=== PATIENT | female | born 1950 | race Two or more races ===

== ENCOUNTER 2020-11-10 20:31 | Emergency (ER) | payer OTHER ==
[~2020-11-10] VITALS: Ht 165.1 cm; Wt 99.8 kg
[2020-11-10] MEDS ORDERED: BACITRACIN TOP OINT 1 UD PKG TOP ONE (23:00)
[2020-11-10] MEDS ORDERED: ACETAMINOPHEN 325 MG TAB PO ONE (23:00)
[2020-11-10] MEDS ORDERED: MORPHINE SULFATE 4 MG/ML SYR/VIAL IM ONE (23:15)
[2020-11-11] MEDS ORDERED: HYDROcodone-ACET 5/325MG TAB PO ONE (01:45)
[2020-11-11 02:15] VITALS: BP 155/84
== END 2020-11-11 02:12 | disposition home or self-care (01) ==
LOC: EDBD 20:31 → ER 20:33
DX: S20.212A Contusion of left front wall of thorax, initial encounter (principal); S80.11XA Contusion of right lower leg, initial encounter; S40.812A Abrasion of left upper arm, initial encounter; R51.9 Headache, unspecified; R91.1 Solitary pulmonary nodule; F17.210 Nicotine dependence, cigarettes, uncomplicated; M19.90 Unspecified osteoarthritis, unspecified site; V43.52XA Car driver injured in collision with other type car in traffic accident, initial encounter; Y93.89 Activity, other specified; Y92.410 Unspecified street and highway as the place of occurrence of the external cause; Y99.8 Other external cause status
CPT/HCPCS: 70450; 71250; 72125; 73590; 73600; 74176; 93005; 96372; 99285; J2270

== ENCOUNTER 2022-11-26 18:57 | Emergency (ER) | payer OTHER ==
[~2022-11-26] VITALS: Ht 157.5 cm; Wt 70.0 kg
[2022-11-26 20:14] LABS: Basophils # (auto) 0.1 10 ^3/uL (0-0.2); Basophils % (auto) 1.5 % (0.0-2.0); Eosinophils # (auto) 0.1 10 ^3/uL (0-0.8); Eosinophils % (auto) 1.6 % (0.0-7.0); Hematocrit 39.5 % (36.0-46.0); Hemoglobin 12.9 g/dL (12.2-16.2); Lymphocytes # (auto) 1.7 10 ^3/uL (0.4-5.4); Lymphocytes % (auto) 19.1 % (10.0-50.0); Mean Corpuscular Hemoglobin 31.5 pg (28.0-32.0); Mean Corpuscular Hgb Conc. 32.6 g/dL (32.0-36.0); Mean Corpuscular Volume 96.4 fL (80.0-100.0); Monocytes # (auto) 1.1 10 ^3/uL (0-1.3); Monocytes % (auto) 13.1 % (0.0-12.0); Neutrophils # (auto) 5.6 10 ^3/uL (1.6-8.6); Neutrophils % (auto) 64.7 % (37.0-80.0); Red Cell Distribution Width 15.5 % (11.8-14.3); White Blood Cell 8.7 10^3/uL (4.4-10.8)
[2022-11-26 20:15] VITALS: PULSE 68; RESP 16; O2SAT 96
[2022-11-26] MEDS ORDERED: MORPHINE SULFATE 4 MG/ML SYR/VIAL IV ONE (20:30)
[2022-11-26] MEDS ORDERED: SODIUM CHLORIDE 0.9% 1,000 ML IV ONE (20:30)
[2022-11-26 20:38] LABS: Alanine Aminotransferase 12 U/L (7-40); Albumin 3.7 g/dL (3.2-4.8); Alkaline Phosphatase 70 U/L (46-116); Anion Gap 10 (5-15); Aspartate Aminotransferase 14 U/L (13-40); BUN/Creatinine Ratio 18.6 (10.0-20.0); Bilirubin, Total 0.5 mg/dL (0.2-1.0); Blood Urea Nitrogen 31 mg/dL (9-23); Calcium 9.6 mg/dL (8.7-10.4); Carbon Dioxide 25 mmol/L (20-30); Chloride 106 mmol/L (98-107); Potassium 4.1 mmol/L (3.5-5.1); Sodium 141 mmol/L (136-145); Total Protein 6.1 g/dL (5.7-8.2)
[2022-11-26 20:54] LABS: Glucose 76 mg/dL (74-106)
[2022-11-26 22:12] VITALS: BP 124/61; PULSE 66; RESP 18; O2SAT 100
== END 2022-11-26 22:35 | disposition home or self-care (01) ==
LOC: ER 18:57 → EDBD 18:57 → EDUNIT# 18:57 → ER 22:35
DX: R55 Syncope and collapse (principal); I10 Essential (primary) hypertension; F17.210 Nicotine dependence, cigarettes, uncomplicated
CPT/HCPCS: 36415; 80053; 85025; 93005; 96361; 96374; 99285; J2270; J7030

== ENCOUNTER 2023-03-12 17:08 | Inpatient (IN) | payer OTHER ==
[~2023-03-12] VITALS: Ht 157.5 cm; Wt 73.5 kg
[2023-03-12] MEDS: metroNIDAZOLE 500MG/100ML 100 ML IV SCH ×3 (04:00→20:00)
[2023-03-12 18:00] VITALS: PULSE 98; RESP 27; O2SAT 95
[2023-03-12] MEDS ORDERED: SODIUM CHLORIDE 0.9% 1,000 ML IV ONE (18:00)
[2023-03-12 19:19] LABS: Basophils # (auto) 0 10 ^3/uL (0-0.2); Basophils % (auto) 0.2 % (0.0-2.0); Eosinophils # (auto) 0 10 ^3/uL (0-0.8); Hematocrit 36.7 % (36.0-46.0); Hemoglobin 11.8 g/dL (12.2-16.2); Lymphocytes # (auto) 0.4 10 ^3/uL (0.4-5.4); Lymphocytes % (auto) 2.8 % (10.0-50.0); Mean Corpuscular Hemoglobin 28.4 pg (28.0-32.0); Mean Corpuscular Hgb Conc. 32.2 g/dL (32.0-36.0); Mean Corpuscular Volume 88.4 fL (80.0-100.0); Monocytes # (auto) 0.9 10 ^3/uL (0-1.3); Monocytes % (auto) 5.8 % (0.0-12.0); Neutrophils # (auto) 14.4 10 ^3/uL (1.6-8.6); Neutrophils % (auto) 91.2 % (37.0-80.0); Red Blood Cells 4.15 10^6/uL (4.0-5.20); Red Cell Distribution Width 16.1 % (11.8-14.3); White Blood Cell 15.8 10^3/uL (4.4-10.8)
[2023-03-12 19:31] LABS: Albumin 3.4 g/dL (3.2-4.8); Alkaline Phosphatase 83 U/L (46-116); Anion Gap 10 (5-15); Aspartate Aminotransferase 14 U/L (13-40); BUN/Creatinine Ratio 23.1 (10.0-20.0); Bilirubin, Total 0.5 mg/dL (0.2-1.0); Blood Urea Nitrogen 25 mg/dL (9-23); Calcium 8.3 mg/dL (8.7-10.4); Carbon Dioxide 22 mmol/L (20-30); Chloride 105 mmol/L (98-107); Glucose 88 mg/dL (74-106); Magnesium 1.7 mg/dL (1.6-2.6); Potassium 3.2 mmol/L (3.5-5.1); Sodium 137 mmol/L (136-145)
[2023-03-12 19:32] LABS: Alanine Aminotransferase < 9 U/L (7-40); Total Protein 5.7 g/dL (5.7-8.2)
[2023-03-12] MEDS ORDERED: ACETAMINOPHEN 325 MG TAB PO ONE ×2 (20:15→22:45)
[2023-03-12] MEDS ORDERED: metroNIDAZOLE 500MG/100ML 100 ML IV ONE (20:15)
[2023-03-12] MEDS ORDERED: MORPHINE SULFATE INJ 2 MG/ml SYRG IV PRN (21:15)
[2023-03-12] MEDS ORDERED: NITROGLYCERIN 0.4 MG SL TAB SL PRN (21:15)
[2023-03-12] MEDS ORDERED: SOD CHL 0.45% 1,000 ML IV ONE (21:15)
[2023-03-12] MEDS ORDERED: POTASSIUM CHL 20MEQ/100ML 100 ML IV ONE (21:15)
[2023-03-12 21:44] LABS: INR 1.14 (0.9-1.15); Prothrombin Time 11.9 sec (9.3-11.8)
[2023-03-12 22:14] LABS: Urine Epithelial Cast None Seen /hpf (<5)
[2023-03-12 22:26] LABS: Urine Bacteria FEW /hpf (None Seen); Urine Blood TRACE /uL (Negative); Urine Clarity HAZY (Clear); Urine Color Yellow (Yellow); Urine Hyaline Cast FEW /lpf (0 - 2); Urine Mucus FEW (None Seen); Urine Protein, UAD 1+ (Negative); Urine Specific Gravity 1.014 (1.001-1.035); Urine Urobilinogen Normal (Negative); Urine WBC 9 /hpf (0 - 5)
[2023-03-12] MEDS ORDERED: ONDANSETRON HCL 4 MG/2 ML VIAL IV ONE (22:45)
[2023-03-12] MEDS: CIPROFLOXACIN 400MG/200ML 200 ML IV SCH (22:57)
[2023-03-13] VITALS (7 sets, daily range): BP systolic 102–131; BP diastolic 49–94; PULSE 71–146; RESP 15–19; TEMP 97.4–97.9; O2SAT 90–97
[2023-03-13] MEDS: ACETAMINOPHEN 325 MG TAB PO PRN ×3 (02:07→16:33)
[2023-03-13] MEDS ORDERED: LEFL1TAB3 PO (03:36)
[2023-03-13] MEDS ORDERED: POTA-211 PO (03:36)
[2023-03-13] MEDS ORDERED: HYDR25TA5 PO (03:36)
[2023-03-13] MEDS: metroNIDAZOLE 500MG/100ML 100 ML IV SCH ×3 (05:01→20:49)
[2023-03-13 06:30] LABS: Basophils # (auto) 0.1 10 ^3/uL (0-0.2); Basophils % (auto) 0.4 % (0.0-2.0); Eosinophils # (auto) 0 10 ^3/uL (0-0.8); Eosinophils % (auto) 0.1 % (0.0-7.0); Hematocrit 33.9 % (36.0-46.0); Hemoglobin 10.8 g/dL (12.2-16.2); Lymphocytes # (auto) 0.5 10 ^3/uL (0.4-5.4); Lymphocytes % (auto) 3.6 % (10.0-50.0); Mean Corpuscular Hemoglobin 28.7 pg (28.0-32.0); Mean Corpuscular Hgb Conc. 31.9 g/dL (32.0-36.0); Mean Corpuscular Volume 90.1 fL (80.0-100.0); Monocytes # (auto) 1.6 10 ^3/uL (0-1.3); Monocytes % (auto) 11.3 % (0.0-12.0); Neutrophils # (auto) 11.9 10 ^3/uL (1.6-8.6); Neutrophils % (auto) 84.6 % (37.0-80.0); Red Blood Cells 3.77 10^6/uL (4.0-5.20); Red Cell Distribution Width 16.2 % (11.8-14.3); White Blood Cell 14.1 10^3/uL (4.4-10.8)
[2023-03-13 06:40] LABS: Albumin 3.2 g/dL (3.2-4.8); Alkaline Phosphatase 76 U/L (46-116); Anion Gap 10 (5-15); Aspartate Aminotransferase 16 U/L (13-40); BUN/Creatinine Ratio 21.6 (10.0-20.0); Bilirubin, Total 0.5 mg/dL (0.2-1.0); Blood Urea Nitrogen 19 mg/dL (9-23); Calcium 8.3 mg/dL (8.5-10.1); Carbon Dioxide 21 mmol/L (20-30); Chloride 105 mmol/L (98-107); Glucose 79 mg/dL (74-106); Potassium 2.9 mmol/L (3.5-5.1); Sodium 136 mmol/L (136-145); Total Protein 5.4 g/dL (5.7-8.2)
[2023-03-13 06:45] LABS: Alanine Aminotransferase < 9 U/L (7-40)
[2023-03-13] MEDS: CIPROFLOXACIN 400MG/200ML 200 ML IV SCH ×2 (09:07→20:58)
[2023-03-13] MEDS ORDERED: POTASSIUM CHLORIDE 80 MEQ, LIDOCAINE 1% (LOCAL ANESTH.) 6 ML in SODIUM CHL 0.9% 500 ML IV ONE (11:15)
[2023-03-13] MEDS ORDERED: SODIUM CHLORIDE 0.9% 1,000 ML IV ONE (15:15)
[2023-03-13] MEDS ORDERED: METR-344 PO ×2 (15:29)
[2023-03-13] MEDS ORDERED: CIPR500T4 PO ×2 (15:29)
[2023-03-13] MEDS ORDERED: KETOROLAC TROMETH 30 MG/ML 1ML VIAL IV ONE (18:00)
[2023-03-13] MEDS ORDERED: POTASSIUM CHL 20 Meq TABLET PO ONE (18:00)
[2023-03-13] MEDS ORDERED: NAP500T PO ×2 (18:01)
[2023-03-13] MEDS ORDERED: dilTIAZem 25 MG/5 ML VIAL IV ONE (20:15)
[2023-03-14] VITALS (9 sets, daily range): BP systolic 108–120; BP diastolic 53–62; PULSE 74–95; RESP 17–19; TEMP 97.8–98.4; O2SAT 95–96
[2023-03-14] MEDS: metroNIDAZOLE 500MG/100ML 100 ML IV SCH ×3 (03:04→20:11)
[2023-03-14 09:33] LABS: Basophils # (auto) 0 10 ^3/uL (0-0.2); Basophils % (auto) 0.3 % (0.0-2.0); Eosinophils # (auto) 0.1 10 ^3/uL (0-0.8); Eosinophils % (auto) 0.6 % (0.0-7.0); Hematocrit 33.1 % (36.0-46.0); Hemoglobin 10.7 g/dL (12.2-16.2); Lymphocytes # (auto) 0.5 10 ^3/uL (0.4-5.4); Lymphocytes % (auto) 4.1 % (10.0-50.0); Mean Corpuscular Hemoglobin 28.3 pg (28.0-32.0); Mean Corpuscular Hgb Conc. 32.2 g/dL (32.0-36.0); Mean Corpuscular Volume 87.7 fL (80.0-100.0); Monocytes # (auto) 1.4 10 ^3/uL (0-1.3); Monocytes % (auto) 10.7 % (0.0-12.0); Neutrophils # (auto) 10.9 10 ^3/uL (1.6-8.6); Neutrophils % (auto) 84.3 % (37.0-80.0); Red Blood Cells 3.78 10^6/uL (4.0-5.20); Red Cell Distribution Width 16.1 % (11.8-14.3); White Blood Cell 12.9 10^3/uL (4.4-10.8)
[2023-03-14] MEDS ORDERED: METOPROLOL TARTRATE 25 MG TAB PO ONE (09:45)
[2023-03-14] MEDS ORDERED: FOLIC ACID 1 MG, MAGNESIUM SULF SDV 50% 8 MEQ, MULTIPLE VITAMIN 10 ML, THIAMINE INJ 100... INJ SCH ×5 (09:45)
[2023-03-14 09:57] LABS: Albumin 3.2 g/dL (3.2-4.8); Alkaline Phosphatase 81 U/L (46-116); Anion Gap 9 (5-15); Aspartate Aminotransferase 15 U/L (13-40); Blood Urea Nitrogen 17 mg/dL (9-23); Calcium 8.8 mg/dL (8.5-10.1); Carbon Dioxide 21 mmol/L (20-30); Chloride 108 mmol/L (98-107); Cholesterol 98 mg/dL (< 200); Glucose 86 mg/dL (74-106); HDL Cholesterol 23 mg/dL (40-59); LDL Cholesterol 35 mg/dL (< 100); Potassium 3.4 mmol/L (3.5-5.1); Sodium 138 mmol/L (136-145); Triglycerides 98 mg/dL (< 150)
[2023-03-14 09:58] LABS: Bilirubin, Total 0.5 mg/dL (0.2-1.0); Total Protein 5.6 g/dL (5.7-8.2)
[2023-03-14 10:05] LABS: Alanine Aminotransferase < 9 U/L (7-40)
[2023-03-14] MEDS: MAGNESIUM SULFATE 1GM/100ML 100 ML IV SCH ×3 (10:24→13:56)
[2023-03-14] MEDS: LOPERAMIDE HCL 2 MG CAP/TAB PO PRN ×3 (10:24→23:42)
[2023-03-14 12:52] LABS: Magnesium 1.8 mg/dL (1.6-2.6)
[2023-03-14] MEDS ORDERED: FOLIC ACID 1 MG, MAGNESIUM SULF SDV 50% 8 MEQ, MULTIPLE VITAMIN 10 ML, THIAMINE INJ 100... INJ ONE ×5 (15:30)
[2023-03-14] MEDS: CIPROFLOXACIN 400MG/200ML 200 ML IV SCH ×2 (15:39→21:48)
[2023-03-15] VITALS (7 sets, daily range): BP systolic 108–122; BP diastolic 57–68; PULSE 87–99; RESP 16–21; TEMP 98–98.8; O2SAT 94–98
[2023-03-15] MEDS: metroNIDAZOLE 500MG/100ML 100 ML IV SCH ×3 (04:03→20:51)
[2023-03-15 05:15] LABS: COVID19 ANTIGEN SOFIA FIA NEGATIVE (NEGATIVE); Rapid Influenza A Negative (Negative); Rapid Influenza B Negative (Negative)
[2023-03-15] MEDS: CIPROFLOXACIN 400MG/200ML 200 ML IV SCH ×2 (08:55→20:46)
[2023-03-15] MEDS ORDERED: NITROGLYCERIN 0.4 MG SL TAB SL PRN (11:45)
[2023-03-15 12:13] LABS: Basophils # (auto) 0.1 10 ^3/uL (0-0.2); Basophils % (auto) 0.6 % (0.0-2.0); Eosinophils # (auto) 0.2 10 ^3/uL (0-0.8); Eosinophils % (auto) 1.7 % (0.0-7.0); Hematocrit 30.6 % (36.0-46.0); Hemoglobin 9.9 g/dL (12.2-16.2); Lymphocytes % (auto) 8.3 % (10.0-50.0); Mean Corpuscular Hemoglobin 28.3 pg (28.0-32.0); Mean Corpuscular Hgb Conc. 32.3 g/dL (32.0-36.0); Mean Corpuscular Volume 87.7 fL (80.0-100.0); Monocytes # (auto) 1.9 10 ^3/uL (0-1.3); Monocytes % (auto) 15.8 % (0.0-12.0); Neutrophils # (auto) 8.9 10 ^3/uL (1.6-8.6); Neutrophils % (auto) 73.6 % (37.0-80.0); Red Blood Cells 3.49 10^6/uL (4.0-5.20); Red Cell Distribution Width 16.5 % (11.8-14.3); White Blood Cell 12.1 10^3/uL (4.4-10.8)
[2023-03-15] MEDS ORDERED: MORPHINE SULFATE INJ 2 MG/ml SYRG IV PRN (12:15)
[2023-03-15 12:37] LABS: Alkaline Phosphatase 75 U/L (46-116); Anion Gap 6 (5-15); Aspartate Aminotransferase 9 U/L (13-40); Blood Urea Nitrogen 11 mg/dL (9-23); Calcium 8.4 mg/dL (8.7-10.4); Carbon Dioxide 20 mmol/L (20-30); Chloride 111 mmol/L (98-107); Glucose 87 mg/dL (74-106); Potassium 3.3 mmol/L (3.5-5.1); Sodium 137 mmol/L (136-145)
[2023-03-15 12:38] LABS: Bilirubin, Total 0.3 mg/dL (0.2-1.0); Total Protein 5.3 g/dL (5.7-8.2)
[2023-03-15 12:39] LABS: Alanine Aminotransferase < 9 U/L (7-40)
[2023-03-15] MEDS: VANCOMYCIN HCL 125 MG CAP PO SCH (20:47)
[2023-03-16 04:38] VITALS: BP 127/74; PULSE 76; RESP 18; TEMP 97.1; O2SAT 97
[2023-03-16] MEDS: VANCOMYCIN HCL 125 MG CAP PO SCH ×3 (05:33→17:44)
[2023-03-16] MEDS: metroNIDAZOLE 500MG/100ML 100 ML IV SCH ×2 (05:34→13:26)
[2023-03-16] MEDS: CIPROFLOXACIN 400MG/200ML 200 ML IV SCH (07:53)
[2023-03-16 08:00] VITALS: BP 113/79; PULSE 83; PULSE 87; RESP 18; TEMP 98.3; O2SAT 96
[2023-03-16 09:46] LABS: Basophils # (auto) 0.1 10 ^3/uL (0-0.2); Basophils % (auto) 0.9 % (0.0-2.0); Eosinophils # (auto) 0.2 10 ^3/uL (0-0.8); Eosinophils % (auto) 2.6 % (0.0-7.0); Hematocrit 31.6 % (36.0-46.0); Hemoglobin 10.4 g/dL (12.2-16.2); Lymphocytes # (auto) 1.1 10 ^3/uL (0.4-5.4); Lymphocytes % (auto) 11.1 % (10.0-50.0); Mean Corpuscular Hemoglobin 28.7 pg (28.0-32.0); Mean Corpuscular Hgb Conc. 32.9 g/dL (32.0-36.0); Monocytes # (auto) 1.6 10 ^3/uL (0-1.3); Monocytes % (auto) 16.7 % (0.0-12.0); Neutrophils # (auto) 6.6 10 ^3/uL (1.6-8.6); Neutrophils % (auto) 68.7 % (37.0-80.0); Red Blood Cells 3.63 10^6/uL (4.0-5.20); Red Cell Distribution Width 16.4 % (11.8-14.3); White Blood Cell 9.6 10^3/uL (4.4-10.8)
[2023-03-16] MEDS ORDERED: AZITHROMYCIN 500MG/ 250ML 250 ML IV SCH (10:00)
[2023-03-16 10:06] LABS: Albumin 3.1 g/dL (3.2-4.8); Alkaline Phosphatase 76 U/L (46-116); Anion Gap 11 (5-15); Aspartate Aminotransferase 12 U/L (13-40); BUN/Creatinine Ratio 16.9 (10.0-20.0); Blood Urea Nitrogen 10 mg/dL (9-23); Calcium 8.8 mg/dL (8.5-10.1); Carbon Dioxide 21 mmol/L (20-30); Chloride 107 mmol/L (98-107); Glucose 117 mg/dL (74-106); Potassium 2.8 mmol/L (3.5-5.1); Sodium 139 mmol/L (136-145)
[2023-03-16 10:07] LABS: Alanine Aminotransferase < 9 U/L (7-40); Bilirubin, Total 0.3 mg/dL (0.2-1.0); Total Protein 5.5 g/dL (5.7-8.2)
[2023-03-16 10:19] LABS: Magnesium 1.6 mg/dL (1.6-2.6)
[2023-03-16 10:36] VITALS: BP 113/79; PULSE 87; RESP 18; TEMP 98.3; O2SAT 96
[2023-03-16] MEDS ORDERED: POTASSIUM CHL 20 Meq TABLET PO ONE (11:00)
[2023-03-16] MEDS ORDERED: MAGNESIUM OXIDE 400 MG TAB PO ONE (12:45)
[2023-03-16] MEDS ORDERED: VANC125PO PO (12:49)
[2023-03-16] MEDS ORDERED: AZIT500T66 PO (12:51)
[2023-03-16] MEDS ORDERED: POTA10TA51 PO (12:52)
[2023-03-16] MEDS ORDERED: APIX5TAB PO (13:11)
[2023-03-16 13:22] VITALS: BP 120/74; PULSE 86; RESP 18; TEMP 98.2; O2SAT 98
[2023-03-16] MEDS: POTASSIUM CHL 20MEQ/100ML 100 ML IV SCH ×2 (13:26→16:11)
[2023-03-16 16:25] VITALS: BP 111/81; PULSE 92; RESP 18; TEMP 98.3; O2SAT 97
== END 2023-03-16 19:09 | disposition home health service (06) | DRG 372 ==
LOC: EDBD 17:08 → ER 17:08 → TELE 21:12 → TELE-EAST 03-13 02:40 → OBSVTOIN 03-14 12:32 → TELE-EAST 03-15 20:32
PROVIDERS: ADMIT Internal Medicine; ATTEND Student in an Organized Health Care Education/Training Program
DX: A04.72 Enterocolitis due to Clostridium difficile, not specified as recurrent (principal); C34.90 Malignant neoplasm of unspecified part of unspecified bronchus or lung; K35.80 Unspecified acute appendicitis; N39.0 Urinary tract infection, site not specified; D68.59 Other primary thrombophilia; R65.10 Systemic inflammatory response syndrome (SIRS) of non-infectious origin without acute organ dysfunction; E86.0 Dehydration; F17.210 Nicotine dependence, cigarettes, uncomplicated; K82.4 Cholesterolosis of gallbladder; K76.9 Liver disease, unspecified; M06.9 Rheumatoid arthritis, unspecified; E87.6 Hypokalemia; I10 Essential (primary) hypertension; I48.91 Unspecified atrial fibrillation; R00.0 Tachycardia, unspecified; R55 Syncope and collapse; M19.90 Unspecified osteoarthritis, unspecified site; I95.9 Hypotension, unspecified; Z85.118 Personal history of other malignant neoplasm of bronchus and lung
CPT/HCPCS: 36415; 70450; 71045; 72125; 74176; 76705; 80053; 80061; 81001; 82270; 83036; 83605; 83735; 83880; 84443; 84484; 85025; 85048; 85610; 87040; 87045; 87086; 87177; 87426; 87427; 87493; 87804; 93005; 93306; 96361; 96365; 97163; 99291; G0378; J1885; J2001; J2405; J3480; J3490

== ENCOUNTER 2023-03-17 12:29 | Emergency (ER) | payer OTHER ==
[~2023-03-17] VITALS: Ht 157.5 cm; Wt 91.0 kg
[~2023-03-17 12:29] MED LIST: APIX5TAB PO; AZIT500T66 PO; LEFL1TAB3 PO; POTA10TA51 PO; VANC125PO PO
[2023-03-17 14:35] LABS: Red Blood Cells 3.87 10^6/uL (4.0-5.20); White Blood Cell 10.9 10^3/uL (4.4-10.8)
[2023-03-17 14:37] LABS: Hematocrit 34.1 % (36.0-46.0); Hemoglobin 11.2 g/dL (12.2-16.2); Mean Corpuscular Hgb Conc. 32.9 g/dL (32.0-36.0); Mean Corpuscular Volume 88.2 fL (80.0-100.0); Red Cell Distribution Width 16.4 % (11.8-14.3)
[2023-03-17 14:42] LABS: Basophils % (manual) 0 (0.0-2.0); Blast Cells 0; Metamyelocytes % 0; Myelocytes % 0; Promyelocytes % 0; Reactive Lymphocytes 0
[2023-03-17 15:11] LABS: Urine Bacteria NONE SEEN /hpf (None Seen); Urine Blood Negative /uL (Negative); Urine Clarity Clear (Clear); Urine Color PINK (Yellow); Urine Mucus FEW (None Seen); Urine Protein, UAD TRACE (Negative); Urine Specific Gravity 1.025 (1.001-1.035); Urine Urobilinogen Normal (Negative); Urine WBC 2 /hpf (0 - 5); Urine pH 5.5 (5.0-8.0)
[2023-03-17 15:15] LABS: Band Neutrophils % (manual) 5; Eosinophils % (manual) 2 (0-7); Lymphocytes % (manual) 19 (10.0-50.0); Monocytes % (manual) 6 (0-12); Platelet Estimate Adequate
[2023-03-17 15:28] LABS: Albumin 3.4 g/dL (3.2-4.8); Alkaline Phosphatase 75 U/L (46-116); Anion Gap 8 (5-15); Aspartate Aminotransferase 13 U/L (13-40); BUN/Creatinine Ratio 15.1 (10.0-20.0); Bilirubin, Total 0.3 mg/dL (0.2-1.0); Blood Urea Nitrogen 8 mg/dL (9-23); Calcium 9.2 mg/dL (8.5-10.1); Carbon Dioxide 23 mmol/L (20-30); Chloride 109 mmol/L (98-107); Glucose 87 mg/dL (74-106); Potassium 4.2 mmol/L (3.5-5.1); Sodium 140 mmol/L (136-145); Total Protein 5.9 g/dL (5.7-8.2)
[2023-03-17 15:34] LABS: Alanine Aminotransferase < 9 U/L (7-40)
[2023-03-17] MEDS ORDERED: HYDROcodone-ACET 5/325MG TAB PO ONE (16:00)
[2023-03-17] MEDS ORDERED: KETOROLAC TROMETH 60MG/2ML VIAL IM ONE (16:30)
[2023-03-17] MEDS ORDERED: cefTRIAXone SOD 1,000 MG VL IM ONE (16:30)
[2023-03-17 20:15] VITALS: BP 141/99; PULSE 99; RESP 19; TEMP 97.7; O2SAT 100
== END 2023-03-17 21:46 | disposition home or self-care (01) ==
LOC: ER 12:29
DX: N12 Tubulo-interstitial nephritis, not specified as acute or chronic (principal); I10 Essential (primary) hypertension; M19.90 Unspecified osteoarthritis, unspecified site; F17.210 Nicotine dependence, cigarettes, uncomplicated; Z85.9 Personal history of malignant neoplasm, unspecified; Z79.899 Other long term (current) drug therapy
CPT/HCPCS: 36415; 71111; 80053; 81001; 85007; 85027; 87086; 96372; 99284; J0696; J1885

== ENCOUNTER 2023-06-07 13:09 | Emergency (ER) | payer OTHER ==
[~2023-06-07] VITALS: Ht 157.5 cm; Wt 59.7 kg
[~2023-06-07 13:09] MED LIST changes: +POTA-36 PO; -POTA10TA51 PO
[2023-06-07] MEDS: SODIUM CHLORIDE 0.9% 2,000 ML IV ONE (14:33)
[2023-06-07] MEDS: ONDANSETRON HCL 4 MG/2 ML VIAL IV ONE ×2 (14:35→19:52)
[2023-06-07] MEDS: fentaNYL CITRATE 100 MCG/2 ML VL IV ONE ×2 (14:35→18:49)
[2023-06-07 14:48] LABS: Urine Bacteria None Seen /hpf (None Seen)
[2023-06-07] MEDS ORDERED: LACTCAP35 OR (14:57)
[2023-06-07] MEDS ORDERED: METO25TA5 PO (14:57)
[2023-06-07] MEDS ORDERED: FER325T PO (14:57)
[2023-06-07] MEDS ORDERED: TRAM50TA2 PO (14:57)
[2023-06-07] MEDS ORDERED: FAMO20TA10 PO (14:57)
[2023-06-07 14:59] LABS: Urine Blood 1+ /uL (Negative); Urine Clarity Turbid (Clear); Urine Color Yellow (Yellow); Urine Hyaline Cast FEW /lpf (0 - 2); Urine Mucus FEW (None Seen); Urine Protein, UAD 2+ (Negative); Urine Specific Gravity 1.025 (1.001-1.035); Urine Urobilinogen Normal (Negative); Urine WBC 9 /hpf (0 - 5); Urine pH 5.5 (5.0-9.0)
[2023-06-07 15:32] LABS: Basophils # (auto) 0 10 ^3/uL (0-0.2); Basophils % (auto) 0.3 % (0.0-2.0); Eosinophils # (auto) 0 10 ^3/uL (0-0.8); Eosinophils % (auto) 0.1 % (0.0-7.0); Hematocrit 35.5 % (36.0-46.0); Hemoglobin 11.5 g/dL (12.2-16.2); Lymphocytes # (auto) 0.6 10 ^3/uL (0.4-5.4); Lymphocytes % (auto) 6.4 % (10.0-50.0); Mean Corpuscular Hemoglobin 28.7 pg (28.0-32.0); Mean Corpuscular Hgb Conc. 32.3 g/dL (32.0-36.0); Mean Corpuscular Volume 89.1 fL (80.0-100.0); Monocytes # (auto) 1.2 10 ^3/uL (0-1.3); Monocytes % (auto) 12.8 % (0.0-12.0); Neutrophils # (auto) 7.4 10 ^3/uL (1.6-8.6); Neutrophils % (auto) 80.4 % (37.0-80.0); Red Blood Cells 3.99 10^6/uL (4.0-5.20); Red Cell Distribution Width 16.8 % (11.8-14.3); White Blood Cell 9.1 10^3/uL (4.4-10.8)
[2023-06-07 15:43] LABS: Albumin 3.5 g/dL (3.2-4.8); Alkaline Phosphatase 93 U/L (46-116); Anion Gap 8 (5-15); Aspartate Aminotransferase 21 U/L (13-40); BUN/Creatinine Ratio 14.6 (10.0-20.0); Blood Urea Nitrogen 13 mg/dL (9-23); Calcium 9.3 mg/dL (8.7-10.4); Carbon Dioxide 21 mmol/L (20-30); Chloride 107 mmol/L (98-107); Glucose 105 mg/dL (74-106); Lipase 21 U/L (12-53); Potassium 3.7 mmol/L (3.5-5.1); Sodium 136 mmol/L (136-145)
[2023-06-07 15:44] LABS: Bilirubin, Total 0.3 mg/dL (0.2-1.0); Total Protein 6.5 g/dL (5.7-8.2)
[2023-06-07 16:04] LABS: Alanine Aminotransferase 9 U/L (7-40)
[2023-06-07] MEDS: LOPERAMIDE 1 mg/7.5ml ORAL soln PO ONE (16:25)
[2023-06-07 18:42] VITALS: PULSE 82; RESP 20; O2SAT 96
[2023-06-07 19:30] VITALS: PULSE 100; RESP 21; O2SAT 99
[2023-06-07] MEDS: SODIUM CHLORIDE 0.9% 1,000 ML IV ONE (19:53)
[2023-06-07] MEDS: ACETAMINOPHEN 325 MG TAB PO PRN (20:11)
[2023-06-07 21:00] VITALS: BP 129/52; PULSE 102; RESP 23; O2SAT 98
[2023-06-07] MEDS ORDERED: CIPR-173 PO (21:09)
[2023-06-07] MEDS ORDERED: METR-344 PO (21:09)
[2023-06-07 21:56] VITALS: TEMP 98.4
[2023-06-07] MEDS: metroNIDAZOLE 500MG/100ML 100 ML IV ONE (23:46)
[2023-06-07] MEDS: CIPROFLOXACIN 400MG/200ML 200 ML IV ONE (23:46)
[2023-06-08] MEDS: CIPROFLOXACIN 400MG/200ML 200 ML IV ONE
[2023-06-08] MEDS: metroNIDAZOLE 500MG/100ML 100 ML IV ONE (02:34)
== END 2023-06-08 05:56 | disposition home or self-care (01) ==
LOC: ER 13:09
DX: K52.9 Noninfective gastroenteritis and colitis, unspecified (principal); K80.20 Calculus of gallbladder without cholecystitis without obstruction; I10 Essential (primary) hypertension; F17.210 Nicotine dependence, cigarettes, uncomplicated
CPT/HCPCS: 36415; 71045; 73501; 73560; 74176; 80053; 81001; 83690; 84484; 85025; 96361; 96365; 96366; 96367; 96375; 96376; 99285; J0744; J2405; J3010; J3490; J7030

== ENCOUNTER 2024-10-11 06:09 | Inpatient (IN) | payer OTHER ==
[~2024-10-11] VITALS: Ht 157.5 cm; Wt 67.5 kg
[~2024-10-11 06:09] MED LIST changes: -APIX5TAB PO; +ASCO500T11 PO; -AZIT500T66 PO; +FAMO20TA10 PO; +FER325T PO; -LEFL1TAB3 PO; +METO25TA5 PO; +TURM500C3 OR; -VANC125PO PO; +ZINC50TA35 PO
[2024-10-11] MEDS ORDERED: fentaNYL CITRATE 100 MCG/2 ML VL ONE (06:54)
[2024-10-11] MEDS ORDERED: PHENYLEPHRINE HCL 10 MG/ML VL ONE (06:55)
[2024-10-11] MEDS ORDERED: MIDAZOLAM HCL 2MG/2ML 2ml VIAL (1mg/ml) ONE (06:55)
[2024-10-11] MEDS ORDERED: PROPOFOL 10 MG/ML 20 ML IV ONE (06:57)
[2024-10-11] MEDS: CELECOXIB 100 MG CAP PO ONE (07:20)
[2024-10-11] MEDS: ACETAMINOPHEN IV 1000 MG/100ML (10MG/ML) IV ONE (07:20)
[2024-10-11] MEDS: PREGABALIN CAPSULE 75 MG CAP PO ONE (07:20)
[2024-10-11] MEDS: MORPHINE SULF PF 5 MG/10 ML VIAL ONE (08:45)
[2024-10-11] MEDS: KETOROLAC TROMETH 30 MG/ML 1ML VIAL ONE ×2 (08:45→10:23)
[2024-10-11] MEDS: BUPIVACAINE 0.25% INJ 50ML VIAL ONE ×2 (08:45→10:23)
[2024-10-11] MEDS: VANCOMYCIN HCL 1000 MG VL ONE ×2 (08:48→10:24)
[2024-10-11] MEDS ORDERED: MORPHINE SULFATE INJ 2 MG/ml SYRG IV PRN (09:15)
[2024-10-11] MEDS ORDERED: ceFAZolin 1GM/50ML 50 ML IV SCH (09:15)
[2024-10-11] MEDS ORDERED: HYDROmorphone HCL 2 MG/ML VL/or syr IV PRN ×2 (09:15→09:30)
[2024-10-11] MEDS ORDERED: LACTATED RINGER'S 1,000 ML IV SCH (09:15)
[2024-10-11] MEDS ORDERED: ACETAMINOPHEN 325 MG TAB PO PRN (09:15)
[2024-10-11] MEDS ORDERED: ONDANSETRON HCL 4 MG/2 ML VIAL IV PRN (09:15)
[2024-10-11] MEDS ORDERED: NITROGLYCERIN 0.4 MG SL TAB SL PRN (09:15)
[2024-10-11 09:16] VITALS: PULSE 62; RESP 12; O2SAT 97
[2024-10-11] MEDS: ONDANSETRON HCL 4 MG/2 ML VIAL IV ONE (09:30)
[2024-10-11] MEDS ORDERED: ENOXAPARIN SOD 30 MG/0.3 ML SYRINGE SC SCH (10:00)
[2024-10-11] MEDS: DOCUSATE SOD 100 MG CAP PO SCH (10:00)
--- NOTE | 2024-10-11 10:18 | DVH ---
CLINICAL INDICATION: S/P SURGERY ; pain TECHNIQUE: 3 radiographic views of the right knee were obtained. Comparison: XY L KNEE 2V XRAY on DOS: 06/07/23, R TIB FIB XRAY on DOS: 11/10/20 FINDINGS/IMPRESSION: Postsurgical changes from right knee arthroplasty.
[2024-10-11] MEDS: PREGABALIN CAPSULE 75 MG CAP ONE (10:21)
[2024-10-11] MEDS: CELECOXIB 100 MG CAP ONE (10:21)
[2024-10-11] MEDS: ACETAMINOPHEN IV 100 ML IV ONE (10:22)
[2024-10-11] MEDS: ceFAZolin 2 GM/D5W50ml 50 ML IV ONE ×2 (10:22→10:26)
[2024-10-11] MEDS: ROPIVACAINE 0.5% (5MG/ML) 20ML AMPULE IJ ONE (10:22)
[2024-10-11] MEDS: BUPIVACAINE 0.75% INJ 10ML MPV SDV IJ ONE (10:23)
[2024-10-11] MEDS: CEFEPIME 1GM/ 50ML 50 ML IV ONE (10:24)
[2024-10-11] MEDS: TRANEXAMIC ACID 0 ML ONE (10:24)
[2024-10-11] MEDS: TRANEXAMIC ACID 20 ML ONE (10:25)
--- NOTE | 2024-10-11 11:25 | DVHOP2 ---
Discharge Orders Discharge Orders DISCHARGE WHEN CRITERIA MET DISCHARGE WHEN CRITERIA MET. Operative Rep- Outpatient Operative Report PRE-OP DIAGNOSIS: Right knee DJD POST-OP DIAGNOSIS: same [place] protocol followed: Yes ESTIMATED BLOOD LOSS: 50 cc PROCEDURE: Right total knee arthroplasty Computer navigation right total knee arthroplasty SURGEON/FARM SERVICE ADVISER: Brain Dominguez NP ANESTHESIA: Spinal ANESTHESIOLOGIST: Riley Brown INFORMED CONSENT: Informed Consent: Discussed all inherent risks, complications, and alternatives treatments with the patient. Patient has agreed to proceed with the procedure. I have reviewed all pre-operative assessments including Labs, EKGs, and radiographic images that has been performed. Patient is an appropriate candidate for the outpatient surgical center procedure. The patient understands the risks and benefits of surgical and nonsurgical treatment we had an extensive discussion regarding total knee arthroplasty of the right knee the patient understands the risks associated with the total knee arthroplasty. Patient understands the risks associated with the total knee arthroplasty the patient understands the risks and benefits of total knee arthroplasty patient was seen in the preoperative holding area I personally discussed the care with the patient patient understood the risks and benefits of the surgical treatment and opted for surgical treatment The patient was seen in the preoperative area in the right lower extremity was marked the patient was brought to operative suite general incision was then this time I also without hospital protocol the right lower extremity was prepped and draped in the standard fashion Ancef was given for infection prophylaxis TXA was given for bleeding prophylaxis the right lower extremity was then marked the patient was brought to operative suite general incision was then this time muscle under hospital protocol the right lower extremity was prepped and draped in a standard fashion Ancef was then referred infection prophylaxis TXA was given for bleeding prophylaxis once I was then done incision was made the skins were positioned of the VMO quad junction the fat pad was removed off the anterior portion of the fat pad in the anterior horn of the medial and lateral meniscus were then carefully transected along with the ACL PCL using computer navigation with a 2 degree slope with a five slept measuring the medial and lateral aspect of the proximal tibia cut was completed with a 10 mm off the lateral side once I was then completed with the proximal row the proximal tibial cut was then completed the distal femoral cutting with flexion extension internal site of rotation with the its reviewed flushed and cut with a neutral cut hematocrit mechanical axis was then completed once I was then completely appropriate manner therefore five one cutting block with a size four femoral component was then completed of the mediolateral meniscus along with the anterior horn of the the ACL PCL were then transected once I was then done of the knee was then balanced with a 9 mm spacer block there was a was then done and a size three tibial base plate was punched and keeled obese size four femoral component with a 9 mm poly once I was then completed the trial components were appropriate once was then patella nephrectomy was then completed all the trocar was carefully removed once I was then done and a size pretibial basal edge was cemented in place for size four femoral component was cemented in place a 9 mm polyethylene liner was I was then done on the tricompartment have all the knee was a from the saline vancomycin powder was placed followed by a closed with Ethibond followed by Stratafix followed by 0 Vicryl followed by 2-0 Monocryl followed by a soaked dressing. The patient will be weight-bearing as tolerated in the right lower extremity PT OT out of bed daily up in two weeks' time and a dictation BRAIN WONG MD Oct 11, 2024 11:25
[2024-10-11] MEDS: hydrALAZINE HCL 20 MG/ML VL IV ONE ×2 (11:45→12:17)
[2024-10-11] MEDS: hydrALAZINE HCL 20 MG/ML VL ONE (11:51)
[2024-10-11] MEDS: ceFAZolin 1GM/50ML 50 ML IV SCH (14:46)
--- NOTE | 2024-10-11 15:29 | DVHINCON2 ---
Date of service: Oct 11, 2024 Reason for Consultation Postop medical management History of Present Illness This is a 74-year-old female with osteoarthritis of the knees and hypertension underwent a successful knee surgery and admitted to the hospital postop. Hospitalist consultation is requested by orthopedic surgeon for postop medical management. Patient is seen and evaluated along with the nurse at bedside. Currently she complains of knee pain postop. Otherwise denies any other complaints. Past Medical History Hypertension, osteoarthritis Past Surgical History Knee surgery Allergies: Coded Allergies: NO KNOWN ALLERGIES (Unverified , 11/11/20) Home Meds Reported Medications Curcuma Longa (Turmeric) Extra (TURMERIC) 500 Mg Cap, 500 MG OR DAILY, CAP 10/07/24 Ascorbic Acid (VITAMIN C TABLET) 500 Mg Tb, 1 TAB PO DAILY, #30 TAB 10/07/24 Zinc (EQL NATURAL ZINC) 50 Mg Tab, 50 MG PO DAILY, TAB 10/07/24 Potassium Chloride (POTASSIUM CHLORIDE CR) 10 Meq Tb, 1 TAB PO DAILY, #90 TAB 3 Refills 10/07/24 Ferrous Sulfate (FERROUS SULFATE) 325 Mg Tb, 1 TAB PO DAILY, #30 TAB 3 Refills 06/07/23 Metoprolol Tartrate (Metoprolol Tartrate) 25 Mg Tab, 1 TAB PO BID, #180 TAB 1 Refill 06/07/23 Famotidine (PEPCID TABLET) 20 Mg Tb, 1 TAB PO BID, #60 TAB 5 Refills 06/07/23 Current Medications Current Medications Medications (Trade) Dose Ordered Sig/Naomi Route PRN Reason Start Time Stop Time Status Last Admin Lactated Ringer's 1,000 ml @ 100 mls/hr Q10H IV 10/11/24 09:15 10/11/24 15:25 DC Cefazolin Sodium 50 ml @ 50 mls/hr Q6H IV 10/11/24 09:15 10/11/24 10:29 DC Acetaminophen (Tylenol Tablet) 650 mg Q6HP PRN PO MILD PAIN OR TEMP >101 10/11/24 09:15 Oxycodone/ Acetaminophen (Percocet 5/ 325MG Tablet) 1 tab Q4HP PRN PO MODERATE PAIN 10/11/24 09:15 Hydromorphone HCl (Dilaudid Injection) 1 mg Q2HP PRN IV SEVERE PAIN (7-10 PAIN SCALE) 10/11/24 09:15 10/11/24 15:25 DC Ondansetron HCl (Zofran) 4 mg Q6HP PRN IV NAUSEA / VOMITING 10/11/24 09:15 Docusate Sodium (Colace Capsule) 100 mg Q12HR PO 10/11/24 10:00 Enoxaparin Sodium (Lovenox) 30 mg Q12HR SC 10/11/24 10:00 10/11/24 09:52 DC Nitroglycerin (Ntrostat Sublingual) 0.4 mg Q5MINP PRN SL FOR CHEST PAIN 10/11/24 09:15 Morphine Sulfate 2 mg Q30M PRN IV FOR CHEST PAIN 10/11/24 09:15 Hydromorphone HCl (Dilaudid Injection) 0.5 mg Q10M PRN IV SEVERE PAIN (7-10 PAIN SCALE) 10/11/24 09:30 10/11/24 10:11 DC Enoxaparin Sodium (Lovenox) 40 mg DAILY SC 10/12/24 10:00 Cefazolin Sodium 50 ml @ 50 mls/hr Q6H IV 10/11/24 14:00 10/12/24 02:59 10/11/24 14:46 Lactated Ringer's 1,000 ml @ 70 mls/hr [id number] IV 10/11/24 15:30 10/12/24 05:47 UNV Sennosides (Senokot Tablet) 8.6 mg HS PO 10/11/24 22:00 UNV Review of Systems No chest pain shortness for breath. No headache dizziness or lightheadedness. Other review of systems reviewed normal Vital Signs Vital Signs Date Time Temp Pulse Resp B/P (MAP) Pulse Ox O2 Delivery O2 Flow Rate FiO2 10/11/24 12:35 63 12 118/98 (105) 98 10/11/24 09:16 Room Air 0 97 10/11/24 09:16 97.4 97.4 Physical Exam Alert awake oriented x3. HEENT neck supple no JVD. Pupils equal round react to light. Heart regular rate rhythm S1-S2. Lungs fair air movement without rales wheezes. Abdomen soft nontender positive bowel sounds. Extremities no edema positive pulses. Assessment Right total knee arthroplasty Hypertension GERD Osteoarthritis Postop incentive spirometry. IV fluids. Pain medications with the IV morphine and oral oxycodone. Stool softeners. DVT GI prophylaxis. Follow the labs. Social Service consultation for placement as rehabilitation places. Physical therapy evaluation. Continue home medications. Further clinical management per clinical course and postop recovery. Discussed with the patient and nurse regarding care plan. Problems(with codes): (1) Hypertension Plan discussed with: Patient, Other KETAN SANCHEZ MD Oct 11, 2024 15:29
[2024-10-11] MEDS: LACTATED RINGER'S 1,000 ML IV SCH (15:45)
[2024-10-11] MEDS: OXYCODONE W/ ACETAMINOPHEN 5/325MG TABLET PO PRN (16:16)
[2024-10-11 17:25] VITALS: BP 161/86; PULSE 70; RESP 20; TEMP 97.8; O2SAT 97
[2024-10-11 20:00] VITALS: RESP 17; O2SAT 99
[2024-10-11 21:00] VITALS: BP 142/71; PULSE 70; RESP 17; TEMP 97.8; O2SAT 95
[2024-10-11] MEDS: SENNA 8.6 MG TAB PO SCH (21:11)
[2024-10-11] MEDS: FAMOTIDINE 20 MG TAB PO SCH (21:11)
[2024-10-11] MEDS: METOPROLOL TARTRATE 25 MG TAB PO SCH (21:14)
[2024-10-11] MEDS ORDERED: FAMOTIDINE 20 MG TAB PO SCH (22:00)
[2024-10-12 01:00] VITALS: BP 130/71; PULSE 79; RESP 17; TEMP 98; O2SAT 94
[2024-10-12 05:00] VITALS: BP 114/60; PULSE 78; RESP 17; TEMP 98; O2SAT 96
[2024-10-12 06:52] LABS: Potassium 4.2 mmol/L (3.5-5.1); Sodium 141 mmol/L (136-145)
[2024-10-12 06:53] LABS: Anion Gap 8 (5-15); Carbon Dioxide 23 mmol/L (20-31)
[2024-10-12 06:58] LABS: BUN/Creatinine Ratio 20.3 (10.0-20.0); Blood Urea Nitrogen 13 mg/dL (9-23); Calcium 8.6 mg/dL (8.7-10.4); Chloride 110 mmol/L (98-107); Glucose 66 mg/dL (74-106)
[2024-10-12 07:00] LABS: Hematocrit 35.4 % (36.0-46.0); Hemoglobin 11.9 g/dL (12.2-16.2)
--- NOTE | 2024-10-12 08:09 | DVHDS2 ---
Discharge Summary Date of Admission Oct 11, 2024 at 09:11 Date of Discharge: Oct 12, 2024 Wounds: 1. You will likely have a gel-type dressing over your wound, you may keep this on for 7-14 days after leaving the hospital until your first post-op visit, unless it becomes soiled or your skin becomes irritated. If a wound vac dressing is placed on your knee this is to be left in place for one week and will be changed as needed. After your remove the dressing or wound vac, the home health nurse may place clean dry dressing over your wound. Keep wound covered, clean and dry for two weeks. 2. [place] will be removed during your initial post-op visit. If you have concerns about our wound, please call the office immediately. If nervous about staple removal can take pain pill one hour prior to appointment. 3. If there is drainage from your wound, change the dressing daily until it stops. If drainage lasts more than 10 days, call our office. 4. Low grade (up to 100 degrees) fever is common for the first week after surgery. You should take your temperature daily. If you have fevers of 101 or more, please call the office. Labs/Diagnostic Data: Laboratory Results Test 10/12/24 05:27 Hemoglobin 11.9 g/dL (12.2-16.2) Hematocrit 35.4 % (36.0-46.0) Sodium Level 141 mmol/L (136-145) Potassium Level 4.2 mmol/L (3.5-5.1) Chloride Level 110 mmol/L (98-107) Carbon Dioxide Level 23 mmol/L (20-31) Anion Gap 8 (5-15) Blood Urea Nitrogen 13 mg/dL (9-23) Creatinine 0.64 mg/dL (0.550-1.02) Glomerular Filtration Rate Calc 92 mL/min (>90) BUN/Creatinine Ratio 20.3 (10.0-20.0) Serum Glucose 66 mg/dL (74-106) Calcium Level 8.6 mg/dL (8.7-10.4) Other Laboratory Tests 10/12/24 05:27 Brief Hx & Hospital Course: s/p right TKA Condition at Discharge: Good Final Diagnosis/Problems List right knee osteoarthritis Discharge Disposition: Nursing Home Facility Discharge Instruct/Medications Diet: See Comment Diet comment: may advance diet as tolerated, drink plenty of fluids. Activity: See Comment Activity comment: 1.CPM as ordered, goal is for 6 hours every day for the first 21 days of your recovery. Can break it up in to increments of 2-3 hours at a time. Most hospitals will start at 45 degrees of flexion, and increase by 5 degrees daily until the machine has been maxed out. The goal is to be at 90 degrees by first postop visit in 2 weeks. 2.No pool, jacuzzi, beach, hills or bath for 6 weeks. Once all scabbing has fallen off patient can begin soaking and submerging knee under water for 15-minute periods at a time. 3.Physical therapy is critical in the first 2 weeks. If having issues with scheduling please inform office. 4.No running or jumping for 6 weeks. 5.Can walk and bear as much weight on the surgical leg as tolerated. No restrictions in regards to walking or standing. Follow Up/Referral: 1.Driving is not permitted within the first 2 weeks. 2.Your first postoperative visit will take place 2 weeks after discharge. Please call the office once you are home from the hospital to arrange this appointment. 3.Antibiotic preventative treatment is required before dental or other invasive procedures. Please ask your surgeon about this at your first postoperative visit. If you experience chest pain, shortness of breath or severe painful calf swelling, go to the nearest emergency room to be evaluated. Please call our office once your situation is stabilized. Medications: 1.You will be discharged with pain medication, a blood thinner (unless you were previously on a blood thinner prior to surgery) and stool softener. Please follow the instructions regarding these medications as provided by your nurse at the hospital upon discharge. 2.Blood clots in the leg are a known complication of surgery. It is very important that you take the medication to protect against clots. Depending on what you are discharged on typically it is Lovenox 40mg daily for 2 weeks or Aspirin 81mg twice daily for 4 weeks. After you finish this, you should then take baby Aspirin (81mg) once daily for 2 weeks. 3.You should restart all of your prescription medications once discharged from the hospital/surgery center unless specifically instructed otherwise. 4.Herbal supplements may be restarted 2 weeks after surgery. 5.If you have been given Coumadin as a blood thinner, please follow up with your it director during the first two weeks after surgery to review medications and overall medical well-being. 6.Please note that narcotic pain medication may cause constipation. Please remember to take stool softeners (Colace) when using narcotics to help reduce the change of constipation. You should not use alcohol together with narcotic medication. Scheduled Ascorbic Acid (Vitamin C Tablet), 1 TAB PO DAILY, (Reported) Curcuma Longa (Turmeric) Extra (Turmeric), 500 MG OR DAILY, (Reported) Famotidine (Pepcid Tablet), 1 TAB PO BID, (Reported) Ferrous Sulfate (Ferrous Sulfate), 1 TAB PO DAILY, (Reported) Metoprolol Tartrate (Metoprolol Tartrate), 1 TAB PO BID, (Reported) Potassium Chloride (Potassium Chloride Cr), 1 TAB PO DAILY, (Reported) Zinc (Eql Natural Zinc), 50 MG PO DAILY, (Reported) Discharge Statement: "Patient was advised to return to the ER or call 911 if any headaches, dizziness, shortness of breath, chest pain, abdominal pain, bleeding, fevers, or worsening of medical condition. Patient was counseled about treatment plan, medications, possible side effects, patientverbalized understanding. All questions were answered to the best of my ability. This discharge took greater then 30 minutes in planning, reviewing documentation, counseling the patient, and discussing with other team members." ASSESSMENT ASSESSMENT Assessment IRIS SIGALA NP Oct 12, 2024 08:09
[2024-10-12 08:59] VITALS: BP 145/68; PULSE 67; RESP 16; TEMP 98.2; O2SAT 100
[2024-10-12] MEDS: FERROUS SULFATE 325mg EC TAB PO SCH (09:35)
[2024-10-12] MEDS: ENOXAPARIN SOD 40 MG/0.4 ML SYRINGE SC SCH (09:35)
[2024-10-12 13:30] VITALS: BP 128/81; PULSE 66; RESP 18; TEMP 99.4; O2SAT 98
[2024-10-12 14:59] VITALS: BP 145/68; PULSE 67; RESP 16; TEMP 98.2; O2SAT 100
== END 2024-10-12 15:30 | DRG 470 ==
LOC: SUR 06:09 → OVERFLOW 09:11 → CENTRAL 12:47
PROVIDERS: ADMIT Nurse Practitioner; ATTEND Orthopaedic Surgery Adult Reconstructive Orthopaedic Surgery
PROC: 8E0YXBZ Computer Assisted Procedure of Lower Extremity (ICD-10-PCS; 2024-10-11)
PROC: 0SRC0J9 Replacement of Right Knee Joint with Synthetic Substitute, Cemented, Open Approach (ICD-10-PCS; principal; 2024-10-11 07:32)
DX: M17.11 Unilateral primary osteoarthritis, right knee (principal); I10 Essential (primary) hypertension; K21.9 Gastro-esophageal reflux disease without esophagitis; Z79.899 Other long term (current) drug therapy
CPT/HCPCS: 36415; 73562; 80048; 85014; 85018; 86850; 86900; 86901; 97163; A6198; C1713; G0378; J0131; J1885; J2250; J2704; J3490